=== PATIENT | female | born 1980 ===

== ENCOUNTER 2016-08-23 11:31 | Day surgery (SDC) | payer OTHER ==
[2016-08-23] MEDS ORDERED: CEFAZOLIN 2 GM/DEXTROSE/100 ML BAG IV ONE (13:28)
[2016-08-23] MEDS ORDERED: SCOPOLAMINE HYDROBROMIDE 1.5 MG PATCH TD ONE (13:28)
[2016-08-23] MEDS ORDERED: MIDAZOLAM 2 MG/2 ML VIAL ONE (13:47)
[2016-08-23] MEDS ORDERED: PROPOFOL 200 MG/20 ML VIAL ONE (13:57)
[2016-08-23] MEDS ORDERED: PROPOFOL/EMULSION 500 MG/50 ML BOTTLE IV ONE (13:57)
[2016-08-23] MEDS ORDERED: BUPIVACAINE/EPI 0.5% 30 ML SDV ONE (14:07)
[2016-08-23] MEDS ORDERED: GLYCOPYRROLATE 0.2 MG/1 ML VIAL ONE (14:27)
[2016-08-23] MEDS ORDERED: DEXAMETHASONE 4 MG/ML VIAL ONE (14:27)
[2016-08-23] MEDS ORDERED: LIDOCAINE 2% 5 ML SDV ONE (14:27)
[2016-08-23] MEDS ORDERED: ROCURONIUM 50 MG/5 ML VIAL ONE (14:27)
[2016-08-23] MEDS ORDERED: KETOROLAC 30 MG/1 ML SDV ONE (14:27)
[2016-08-23] MEDS ORDERED: ONDANSETRON 4 MG/2 ML VIAL ONE (14:27)
[2016-08-23] MEDS ORDERED: SUGAMMADEX SODIUM 200 MG/2 ML VIAL IVP ONE (15:34)
[2016-08-23] MEDS ORDERED: HYDROmorphONE/DILAUDID 1 MG/ML SYR ONE (16:12)
[2016-08-23] MEDS ORDERED: fentaNYL 100 MCG/2 ML INJ ONE ×2 (16:12→17:35)
[2016-08-23] MEDS ORDERED: PHENAZOPYRIDINE HCL 200 MG TAB ONE (16:54)
[2016-08-23] MEDS ORDERED: MEPERIDINE 25 MG/ML SYR ONE (16:59)
[2016-08-23] MEDS ORDERED: PHENAZOPYRIDINE HCL 200 MG TAB PO SCH (18:00)
--- NOTE | 2016-08-27 14:55 | GOP ---
[f rep st] OPERATIVE REPORT DATE OF OPERATION: 08/23/2016 SURGEON: Nima Oseguera MD MEDICAL OFFICE RECEPTIONIST ASSISTANT: Ria Kemp CFA ANESTHESIA: General. PREOPERATIVE DIAGNOSIS: 1. Pelvic pain. 2. Endometriosis. 3. Urinary frequency. POSTOPERATIVE DIAGNOSIS: 1. Pelvic pain. 2. Endometriosis. 3. Urinary frequency. PROCEDURE PERFORMED: 1. Robotic excision of endometriosis. 2. Left ureterolysis. 3. Cystoscopy. FINDINGS: SPECIMENS: Pelvic peritoneum with endometriosis. ESTIMATED BLOOD LOSS: Scant. DESCRIPTION OF PROCEDURE: The patient was taken to the operating room, where she was identified. G eneral anesthesia was administered and found to be adequate. She was placed in the lithotomy positi on and prepared and draped in normal sterile fashion. A Wahl catheter was placed in her bladder. A Hulka tenaculum was placed in the uterus for manipulation. A 1 cm infraumbilical incision was made with a scalpel. The Veress needle with CO2 gas flowing was advanced into the peritoneal cavity. The abdomen was then insufflated with carbon dioxide gas. The 12 mm trocar followed by the laparoscope were then inserted. The upper abdomen was unremarkable. There was no evidence of any endometriosis on either diaphragm, liver or stomach. Two lateral ports were placed on the right, and 1 on the left under direct visualization. She was then placed in Micheal ndelenburg position, and the da Mika robot docked on the left side. The instruments were then brou ght into the abdominal cavity under direct visualization. The patient was found to have lesions of endometriosis on both pelvic sidewalls as well as the anterior and posterior cul-de-sac. All lesion s were completely excised. The lesions over the left ureter required a ureterolysis. The peritoneu m at the left pelvic brim was incised. The ureter was gently dissected free. The ureter was latera lized away from the overlying peritoneum and endometriosis all the way down to the bladder. Once th is was accomplished, the overlying peritoneum and endometriosis was completely excised. All specime ns sent to Pathology. The pelvis was then copiously irrigated with sterile saline, and hemostasis w as present. Two sheets of Interceed were placed to try to minimize postoperative adhesion formation . The robot was then undocked. The fascia was closed with 0 Vicryl, skin with 4-0 Monocryl and haven gical adhesive. Cystoscopy was then performed. Both ureters had vigorous jets of urine. There was no evidence of i njury to the bladder or urethra. No obvious pathology, endometriosis, Hunner ulcers were seen withi n the bladder. Anesthesia was reversed, and the patient taken to PACU awake, in stable condition. COMPLICATIONS: None. DISPOSITION: Patient stable to PACU. /[id number]/MODL
== END 2016-08-23 18:30 | disposition home health service (06) ==
LOC: FSGY 11:31
PROVIDERS: ATTEND Obstetrics & Gynecology
PROC: 0UBF4ZZ Excision of Cul-de-sac, Percutaneous Endoscopic Approach (ICD-10-PCS; principal; 2016-08-23 13:45)
PROC: 0UB44ZZ Excision of Uterine Supporting Structure, Percutaneous Endoscopic Approach (ICD-10-PCS; principal; 2016-08-23 13:45)
PROC: 0TN70ZZ Release Left Ureter, Open Approach (ICD-10-PCS; principal; 2016-08-23 13:45)
PROC: 0TJ98ZZ Inspection of Ureter, Via Natural or Artificial Opening Endoscopic (ICD-10-PCS; principal; 2016-08-23 13:45)
DX: N80.9 Endometriosis, unspecified (principal); R10.2 Pelvic and perineal pain; R35.0 Frequency of micturition; N94.6 Dysmenorrhea, unspecified
CPT/HCPCS: 50949; 50951; 58662; C1765; J0690; J1100; J1170; J1885; J2250; J2405; J2704; J3010